=== PATIENT | female | born 1990 | race Caucasian/White ===

== ENCOUNTER → 2025-02-18 12:40 | Outpatient (CLI) | payer OTHER, SELFPAY ==
--- NOTE | 2025-02-18 12:43 | DI.ECHO.S_ITS ---
[facility] : : [address] : : [place] : : [id number] : : Phone: [phone] Echocardiogram Report + + :Name: MARU JULIAN Study Date: 02/18/2025 Height: 68 in : :Hospital ReadingLocation: Weight: 150 lb : : Gender: Female BSA: 1.8 m2 : :: 1990 Age: 34 yrs BP: 108/77 mmHg: :Reason For Study: ISCHEMIC HEART DISEASE : :Ordering Physician: EJ, : :EDWINA Performed By: Kishan Bajwa : :Referring: EDWINA PAGAN : + + Interpretation Summary The left ventricle is normal in size. The ejection fraction is estimated to be 60-65%. There are no focal wall motion abnormalities. Diastolic parameters suggest probable normal left ventricular diastolic function and normal filling pressures. The right ventricle is normal in size and function. Borderline left atrial enlargement. There is no significant valvular heart disease. The aortic root is normal size. Procedure: A two-dimensional transthoracic echocardiogram with color flow and Doppler was performed. The study quality was technically good. There is no prior echocardiogram noted for this patient. The patient was in normal sinus rhythm during the exam. Left Ventricle: The left ventricle is normal in size. There is normal left ventricular wall thickness. There is no ventricular septal defect visualized. The ejection fraction is estimated to be 60-65%. There are no focal wall motion abnormalities. Diastolic parameters suggest probable normal left ventricular diastolic function and normal filling pressures. Right Ventricle: The right ventricle is normal in size and function. Atria: Borderline left atrial enlargement. Right atrial size is normal. There is no Doppler evidence for an interatrial shunt. Mitral Valve: The mitral valve leaflets appear normal. There is no evidence of stenosis, fluttering, or prolapse. There is trace mitral regurgitation. Aortic Valve: The aortic valve is trileaflet. The aortic valve opens well. No aortic regurgitation is present. Tricuspid Valve: The tricuspid valve leaflets are thin and pliable. No tricuspid regurgitation. Pulmonic Valve: The pulmonic valve leaflets are thin and pliable; valve motion is normal. There is trace pulmonic regurgitation. There is no significant valvular heart disease. Great Vessels: The aortic root is normal size. The dimensions of the ascending aorta are normal. The pulmonary artery is normal size. The IVC is dilated (diameter is greater than 2.1 cm) yet it collapses greater than 50% with a sniff. This suggests a right atrial pressure of 8 mm Hg. Pericardium/ Pleura There is no pericardial effusion. There is no pleural effusion. MMode/2D Measurements & Calculations LVIDd: 4.7 cm LVOT diam: 1.9 cm LVIDs: 3.1 cm Ao root diam: 3.0 cm FS: 34.2 % asc Aorta Diam: 3.1 cm EPSS: 0.26 cm IVSd: 0.73 cm LVPWd: 0.69 cm LV lindsay. diameter/BSA (cm/m^2): 2.6 LV sys. diameter/BSA (cm/m^2): 1.7 LA A2 area: 18.9 cm2 RA long axis: 4.3 cm LA A4 area: 19.7 cm2 RA area: 13.7 cm2 LA length (vol): 5.6 cm RA vol: 36.8 ml LA vol: 56.6 ml RA : 20.4 ml/m2 LA vol index: 31.3 ml/m2 IVC diam: 2.1 cm RVD1 (basal): 3.3 cm RVD2 (mid): 2.5 cm TAPSE: 2.6 cm Doppler Measurements & Calculations Ao V2 max: 116.9 cm/sec LVOT Max Josse: 100.0 cm/sec Ao V2 mean: 87.4 cm/sec LV V1 max P.0 mmHg Ao max P.5 mmHg LV V1 VTI: 23.7 cm Ao mean P.3 mmHg CHANTEL(I,D): 2.6 cm2 Ao V2 VTI: 25.6 cm CHANTEL(V,D): 2.4 cm2 sev ratio: 0.92 CHANTEL indexed to BSA (cm^2/m^2): 1.4 MV E max josse: 82.9 cm/sec PA V2 max: 87.6 cm/sec MV A max josse: 58.6 cm/sec PA V2 mean: 67.8 cm/sec MV E/A: 1.4 PA mean P.9 mmHg Med Peak E' Josse: 10.5 cm/sec PA pr(Accel): 22.5 mmHg E/E' med: 7.9 Lat Peak E' Josse: 17.0 cm/sec E/E' lat: 4.9 E/e' average: 6.4 MV dec time: 0.13 sec SV(LVOT): 66.4 ml Reading Physician:07:06 PM
== END ==
LOC: ECHO 12:42
PROVIDERS: Referring Provider Chiropractor; Visit Provider Chiropractor
DX: I25.9 Chronic ischemic heart disease, unspecified (principal)
CPT/HCPCS: 93306